=== PATIENT | female | born 1955 | race Caucasian/White ===

== ENCOUNTER 2020-03-14 06:35 | Day surgery (SDC) | payer BC ==
[2020-03-08 13:39] LABS: BASOPHILS % (AUTO) 0.4 % (0.0-5.0); EOSINOPHILS % (AUTO) 0.9 % (0.0-8.0); HEMATOCRIT 36.3 % (36-48); LYMPHOCYTES % (AUTO) 25.2 % (21.0-51.0); MEAN CORPUSCULAR VOLUME 86.4 fL (79-99); MONOCYTES % (AUTO) 5.8 % (3.0-13.0); NEUTROPHILS % (AUTO) 67.6 % (40.0-77.0); PLATELET COUNT (AUTO) 304 K/uL (130-400); RED CELL DISTRIBUTION WIDTH 14.4 % (11.0-15.5)
[2020-03-08 13:50] LABS: CREATININE 0.8 mg/dL (0.5-1.5); POTASSIUM 3.9 mmol/L (3.5-5.1)
[2020-03-09] MEDS: CEFAZOLIN SODIUM 1 GM VIAL IVP SCH (13:45)
[2020-03-12 10:12] VITALS: BP 129/63
--- NOTE | 2020-03-13 10:05 | NUR ---
RE: ABNORMAL LABS INFORMED DR PELAYO REGARDING HGB 10.9, HCT 36.3. NO NEW ORDERS, PER DR PELAYO OK TO PROCEED WITH SCHEDULED SURGERY.
[2020-03-14] VITALS (15 sets, daily range): BP systolic 101–136; BP diastolic 52–63
[~2020-03-14] VITALS: Ht 160 cm; Wt 99.3 kg
[2020-03-14] MEDS ORDERED: LACTATED RINGERS 1000ML 1,000 ML IV ONE (07:00)
[2020-03-14] MEDS ORDERED: CARAL PO (07:28)
[2020-03-14] MEDS ORDERED: FAMO40TA7 PO (07:28)
[2020-03-14] MEDS ORDERED: PANT40TA25 PO (07:28)
--- NOTE | 2020-03-14 07:30 | NUR ---
SX RIGHT KNEE WIPED WITH ARCHANA PER VESTA , PT JOSE ALFREDO WELL
[2020-03-14] MEDS ORDERED: LIDOCAINE PF 2% 5ML ABBOJECT ONE (09:36)
[2020-03-14] MEDS ORDERED: SUCCINYLCHOLINE CHLORIDE 20 MG/ML 10 ML VIAL ONE (09:36)
[2020-03-14] MEDS ORDERED: PROPOFOL 10 MG/ML 20ML VIAL IV ONE (09:37)
[2020-03-14] MEDS ORDERED: ROCURONIUM 10MG/1ML SYR 10 MG/ML ML ONE (09:37)
[2020-03-14] MEDS ORDERED: FENTANYL CITRATE PF 50 MCG/1 ML 2ML VIAL ONE (09:37)
[2020-03-14] MEDS: CEFAZOLIN SODIUM 1 GM VIAL IVP SCH (09:45)
[2020-03-14] MEDS ORDERED: NEOSTIGMINE 5MG/5ML SYR IV ONE (10:33)
[2020-03-14] MEDS ORDERED: GLYCOPYRROLATE 1 MG/5 ML SYRINGE ONE ×2 (10:33→11:13)
[2020-03-14] MEDS ORDERED: KETOROLAC TROMETHAMINE 30MG/ML ONE (10:33)
[2020-03-14] MEDS ORDERED: CEPHA2505L PO (10:49)
[2020-03-14] MEDS ORDERED: HYDR473S51 PO (10:49)
--- NOTE | 2020-03-14 11:13 | NUR ---
late entry administered glycopyrrolate 0.2mg iv push x1 per anesthesia due to patient having a heart rate of 44, continued to monitor patient and pulse remained between 48-55 and as per anesthesia , okay for patient to go home. At this time no other concerns.
--- NOTE | 2020-03-14 12:18 | NUR ---
RECEIVE PT RECEIVED FROM PACU VIA STRETCHER AWAKE ALERT ORIENTED, STABLE. NO COMPLAINTS MADE. DRESSING TO RIGHT KNEE DRY AND INTACT, NO OOZING NOTED. WILL CALL FOR RIDE. CALL HYDE WITHIN REACH. Addendum: 03/14/20 at 1612 by ROSA REYES RN RN ADDENDUM: ICE PACK APPLIED TO RIGHT KNEE, RIGHT LEG ELEVATED.
--- NOTE | 2020-03-14 13:05 | NUR ---
DISCHARGE PT DISCHARGED VIA WHEELCHAIR WITH , PT STABLE, STATES SITE STINGS, WILL TAKE HER SMITH MED AT HOME. PT ABLE TO TRANSFER WITHOUT ANY PROBLEM, WEIGHT BEARING TOLERATED TO RIGHT LEG. DRESSING TO RIGHT KNEE REMAINS DRY AND INTACT, NO OOZING NOTED. DISCHARGE INSTRUCTIONS GIVEN TO , VERBALIZED UNDERSTANDING. Addendum: 03/14/20 at 1617 by ROSA REYES RN RN ADDENDUM: PT REFUSED CRUTCHES, STATES SHE HAS WALKER AT HOME AND WILL GET HER OWN CRUTCHES, SHE WORKS FOR A [employer].
== END 2020-03-14 13:05 | disposition home or self-care (01) ==
LOC: DAH 06:35
PROVIDERS: ATTEND Orthopaedic Surgery
DX: S83.241A Other tear of medial meniscus, current injury, right knee, initial encounter (principal); M94.261 Chondromalacia, right knee; E11.9 Type 2 diabetes mellitus without complications; E66.9 Obesity, unspecified; Z98.84 Bariatric surgery status; Z98.890 Other specified postprocedural states; X58.XXXA Exposure to other specified factors, initial encounter
CPT/HCPCS: 29881; 36415; 80048; 85025; A4213; A4215; A4221; A4222; A4223; A4606; A4649 ×2; A4663; A4930; A5120; A6223; J0330; J0690; J1885; J2001; J2704; J2710; J3010; J3490 ×2; J7120 ×2

== ENCOUNTER → 2020-11-16 | Outpatient (CLI) | payer MEDICARE ==
[~2020-11-16] MED LIST: CARAL PO; CEPHA2505L PO; FAMO40TA7 PO; HYDR473S51 PO; PANT40TA54 PO
== END | disposition home or self-care (01) ==
LOC: RAH 10:21
PROVIDERS: ATTEND Internal Medicine
DX: S92.812A Other fracture of left foot, initial encounter for closed fracture (principal); S92.811A Other fracture of right foot, initial encounter for closed fracture; M19.071 Primary osteoarthritis, right ankle and foot; M19.072 Primary osteoarthritis, left ankle and foot; M77.32 Calcaneal spur, left foot; M77.31 Calcaneal spur, right foot; M85.872 Other specified disorders of bone density and structure, left ankle and foot; M85.871 Other specified disorders of bone density and structure, right ankle and foot
CPT/HCPCS: 73630

== ENCOUNTER 2021-10-16 08:03 | Day surgery (SDC) | payer MEDICARE ==
[2021-10-15 11:26] LABS: BASOPHILS % (AUTO) 0.7 % (0.0-5.0); EOSINOPHILS % (AUTO) 2.8 % (0.0-8.0); HEMATOCRIT 41.5 % (36-48); LYMPHOCYTES % (AUTO) 32.5 % (21.0-51.0); MEAN CORPUSCULAR HEMOGLOBIN 25.6 pg (27.0-33.0); MEAN CORPUSCULAR HGB CONC 31.1 g/dL (32.0-36.0); MEAN CORPUSCULAR VOLUME 82.5 fL (79-99); MONOCYTES % (AUTO) 7.7 % (3.0-13.0); NEUTROPHILS % (AUTO) 56.1 % (40.0-77.0); PLATELET COUNT (AUTO) 252 K/uL (130-400); RED BLOOD CELL COUNT(AUTO) 5.03 MIL/uL (4.00-5.50); RED CELL DISTRIBUTION WIDTH 16.4 % (11.0-15.5); WHITE BLOOD COUNT (AUTO) 5.8 K/uL (4.8-10.8)
[2021-10-15 11:34] LABS: CREATININE 0.7 mg/dL (0.5-1.5); POTASSIUM 4.5 mmol/L (3.5-5.1)
[2021-10-15 16:42] VITALS: BP 145/84
[2021-10-16] VITALS (16 sets, daily range): BP systolic 109–139; BP diastolic 61–82
[~2021-10-16] VITALS: Ht 162.6 cm; Wt 99.7 kg
[~2021-10-16 08:03] MED LIST changes: +0.9%NACL 1000ML 1,000 ML IV SCH; -CARAL PO; +CEFAZOLIN SODIUM 1 GM VIAL IVP ONE; -CEPHA2505L PO; -FAMO40TA7 PO; -HYDR473S51 PO; -PANT40TA54 PO
[2021-10-16] MEDS ORDERED: CEFAZOLIN SODIUM 1 GM VIAL ONE (08:57)
[2021-10-16] MEDS ORDERED: 0.9%NACL 1000ML 1,000 ML IV ONE (08:57)
[2021-10-16] MEDS ORDERED: PROPOFOL 10 MG/ML 20ML VIAL IV ONE (09:50)
[2021-10-16] MEDS ORDERED: LIDOCAINE PF 100MG/5ML (2%) SYRINGE 5ML ONE (09:50)
[2021-10-16] MEDS ORDERED: FENTANYL CITRATE PF 50 MCG/1 ML 2ML VIAL ONE (09:51)
[2021-10-16] MEDS ORDERED: MIDAZOLAM HCL 1 MG/ML 2ML VIAL ONE (10:07)
[2021-10-16] MEDS ORDERED: ONDANSETRON 4MG INJ ONE (10:26)
[2021-10-16] MEDS ORDERED: DEXAMETHASONE SOD PHOSPHATE 4 MG/ML 1ML VIAL ONE (10:26)
[2021-10-16] MEDS ORDERED: BUPIVACAINE/EPI/PF 0.25% 30ML VIAL IJ ONE (10:28)
[2021-10-16] MEDS ORDERED: BUPIVACAINE/PF 0.25% 30ML VIAL IJ ONE (10:28)
[2021-10-16] MEDS ORDERED: GLYCOPYRROLATE 1 MG/5 ML SYRINGE ONE (10:29)
[2021-10-16] MEDS ORDERED: EPHEDRINE SULFATE 50 MG/ML AMPULE ONE (10:32)
[2021-10-16] MEDS ORDERED: MEPERIDINE-PF 25 MG/ML SYG ONE ×2 (11:12→11:24)
== END 2021-10-16 12:30 | disposition home or self-care (01) ==
LOC: DAH 08:03
PROVIDERS: ATTEND Orthopaedic Surgery
DX: S83.242A Other tear of medial meniscus, current injury, left knee, initial encounter (principal); Z20.822 Contact with and (suspected) exposure to COVID-19; M17.12 Unilateral primary osteoarthritis, left knee; M94.262 Chondromalacia, left knee; F41.8 Other specified anxiety disorders; E66.9 Obesity, unspecified; Z87.891 Personal history of nicotine dependence; Z98.890 Other specified postprocedural states; Z72.89 Other problems related to lifestyle; Z88.0 Allergy status to penicillin; W19.XXXA Unspecified fall, initial encounter; Y93.89 Activity, other specified; Y92.89 Other specified places as the place of occurrence of the external cause
CPT/HCPCS: 29881; 36415; 71045; 80048; 85025; 87635; 93005; A4215; A4216; A4221; A4222; A4223 ×2; A4606; A4663; A4930; A5120; A6223; A6260; C9803; J0690; J1030; J1100; J2001; J2175 ×2; J2250; J2405; J2704; J3010; J3490 ×4; J7030 ×2; J7120

== ENCOUNTER → 2022-01-02 | Outpatient (CLI) | payer MEDICARE | END | disposition home or self-care (01) | LOC: RAH 12:22 | PROVIDERS: ATTEND Internal Medicine | DX: M48.56XA Collapsed vertebra, not elsewhere classified, lumbar region, initial encounter for fracture (principal); M47.816 Spondylosis without myelopathy or radiculopathy, lumbar region | CPT/HCPCS: 72100 ==

== ENCOUNTER → 2022-12-09 | Outpatient (CLI) | payer MEDICARE ==
[2022-12-09 13:11] LABS: ALBUMIN 3.3 g/dL (3.5-5.0); CREATININE 0.7 mg/dL (0.5-1.5); POTASSIUM 4.4 mmol/L (3.5-5.1); TOTAL PROTEIN, SERUM 7.1 g/dL (6.0-8.3)
== END | disposition home or self-care (01) ==
LOC: LAB 08:20
PROVIDERS: ATTEND Internal Medicine Cardiovascular Disease
DX: R06.09 Other forms of dyspnea (principal); E11.9 Type 2 diabetes mellitus without complications
CPT/HCPCS: 36415; 80053; 80061

== ENCOUNTER → 2023-03-10 | Outpatient (CLI) | payer MEDICARE ==
[~2023-03-10] MED LIST changes: -0.9%NACL 1000ML 1,000 ML IV SCH; +ASPI-1197 PO; +ATOR40TA71 PO; -CEFAZOLIN SODIUM 1 GM VIAL IVP ONE; +CLOP75TA32 PO; +MELO-108 PO; +NITR0.4T50 SL; +VITAD50000 PO
[2023-03-10 14:13] LABS: BASOPHILS % (AUTO) 0.6 % (0.0-5.0); EOSINOPHILS % (AUTO) 3.9 % (0.0-8.0); HEMATOCRIT 38.6 % (36-48); LYMPHOCYTES % (AUTO) 27.3 % (21.0-51.0); MEAN CORPUSCULAR HEMOGLOBIN 26.8 pg (27.0-33.0); MEAN CORPUSCULAR HGB CONC 31.1 g/dL (32.0-36.0); MEAN CORPUSCULAR VOLUME 86.4 fL (79-99); MONOCYTES % (AUTO) 6.3 % (3.0-13.0); NEUTROPHILS % (AUTO) 61.7 % (40.0-77.0); PLATELET COUNT (AUTO) 229 K/uL (130-400); RED BLOOD CELL COUNT(AUTO) 4.47 MIL/uL (4.00-5.50); RED CELL DISTRIBUTION WIDTH 15.4 % (11.0-15.5); WHITE BLOOD COUNT (AUTO) 5.1 K/uL (4.8-10.8)
[2023-03-10 14:16] LABS: CREATININE 0.7 mg/dL (0.5-1.5); POTASSIUM 4.4 mmol/L (3.5-5.1)
[2023-03-10 14:30] LABS: INR 0.93 (0.85-1.15); PROTHROMBIN TIME 10.1 SEC (9.6-11.6)
[2023-03-10 14:32] LABS: PARTIAL THROMBOPLASTIN TIME 27.4 SEC (26.3-35.5)
== END | disposition home or self-care (01) ==
LOC: LAB 09:16
PROVIDERS: ATTEND Internal Medicine Cardiovascular Disease
DX: I87.1 Compression of vein (principal); I87.2 Venous insufficiency (chronic) (peripheral); M79.605 Pain in left leg; E66.9 Obesity, unspecified; Z68.34 Body mass index [BMI] 34.0-34.9, adult; Z79.899 Other long term (current) drug therapy
CPT/HCPCS: 36415; 80048; 85025; 85610; 85730

== ENCOUNTER → 2023-06-30 | Outpatient (CLI) | payer MEDICARE | END | disposition home or self-care (01) | LOC: SHCH 09:08 | PROVIDERS: ATTEND Internal Medicine Cardiovascular Disease | DX: I87.2 Venous insufficiency (chronic) (peripheral) (principal) | CPT/HCPCS: 93970 ==

== ENCOUNTER → 2025-03-07 | Outpatient (CLI) | payer OTHER ==
--- NOTE | 2025-03-07 12:20 | HMCIMG ---
BONE DENSITOMETRY: HISTORY: VERTEBRAL FRACTURE Comparison: none FINDINGS: BMD measured at AP spine L1-L4 is 0.81 g/cm2 with a T-score of -2.1 Bone density is between 10 and 25% below young normal. This patient is considered osteopenic. Fracture risk is moderate. BMD measured at Left Femoral Neck is 0.534 g/cm2 with a T-score of -2.8 This patient is considered osteoporotic according to WHO criteria. Fracture risk is high. BMD measured at Left Femoral Total is 0.688 g/cm2 with a T-score of -2.1 Bone density is between 10 and 25% below young normal. This patient is considered osteopenic. Fracture risk is moderate. IMPRESSION: Osteoporosis. High risk for atraumatic fractures. Treatment and follow-up recommended.
== END | disposition home or self-care (01) ==
LOC: CANSCHCLI → RAH 10:34
PROVIDERS: ATTEND Internal Medicine
DX: M80.08XA Age-related osteoporosis with current pathological fracture, vertebra(e), initial encounter for fracture (principal); M85.89 Other specified disorders of bone density and structure, multiple sites
CPT/HCPCS: 77080